=== PATIENT | female | born 1980 | race Asian ===

== ENCOUNTER → 2016-06-30 | Outpatient (CLI) | payer BC | END | disposition home or self-care (01) | LOC: C.LAB1850 12:44 | PROVIDERS: ATTEND Obstetrics & Gynecology | DX: O03.4 Incomplete spontaneous abortion without complication (principal); Z3A.00 Weeks of gestation of pregnancy not specified ==

== ENCOUNTER → 2016-07-07 | Outpatient (CLI) | payer BC | END | disposition home or self-care (01) | LOC: C.LAB1850 13:21 | PROVIDERS: ATTEND Obstetrics & Gynecology | DX: O02.1 Missed abortion (principal); O03.4 Incomplete spontaneous abortion without complication ==

== ENCOUNTER → 2016-07-18 | Outpatient (CLI) | payer BC | END | disposition home or self-care (01) | LOC: C.LAB1850 13:21 | PROVIDERS: ATTEND Obstetrics & Gynecology | DX: O02.1 Missed abortion (principal); O03.4 Incomplete spontaneous abortion without complication ==

== ENCOUNTER → 2016-08-15 | Outpatient (CLI) | payer BC | END | disposition home or self-care (01) | LOC: C.PATHSPEC 17:14 | PROVIDERS: ATTEND Obstetrics & Gynecology | DX: R87.612 Low grade squamous intraepithelial lesion on cytologic smear of cervix (LGSIL) (principal) ==